=== PATIENT | female | born 1935 | race Caucasian/White ===

== ENCOUNTER 2017-12-12 08:43 | Day surgery (SDC) | payer OTHER ==
--- NOTE | 2017-12-12 09:42 | HP ---
History & Physical Update - History History: No Change - Physical Physical: No Change - Assessment Assessment: No Change - Plan Plan: No Change
[2017-12-12] MEDS ORDERED: LIDOCAINE HCL 2% 100 MG/5 ML DISP.SYRIN ONE (09:51)
[2017-12-12] MEDS ORDERED: ROCURONIUM BROMIDE 50 MG/5 ML VIAL ONE (09:51)
[2017-12-12] MEDS ORDERED: fentaNYL CITRATE 250 MCG/5 ML VIAL ONE (09:51)
[2017-12-12] MEDS ORDERED: MIDAZOLAM HCL 2 MG/2 ML SINGLE DOSE VIAL ONE (09:51)
[2017-12-12] MEDS ORDERED: DEXAMETHASONE SOD PHOSPHATE 4 MG/1 ML VIAL ONE (09:51)
[2017-12-12] MEDS ORDERED: PROPOFOL 20 ML ONE (09:51)
[2017-12-12 10:03] VITALS: BMI 31.5
[2017-12-12] MEDS ORDERED: LIDOCAINE 1%/EPI 1:100000 (20 ML MULTI DOSE VIAL) ONE (10:40)
[2017-12-12] MEDS ORDERED: MICROFIBRILLAR COLLAGEN 1 GM EACH ONE (10:40)
[2017-12-12] MEDS ORDERED: ePHEDrine SULFATE 50 MG/1 ML AMPULE ONE (11:34)
[2017-12-12] MEDS ORDERED: ceFAZolin SODIUM 1 GM VIAL ONE (11:38)
[2017-12-12] MEDS ORDERED: ceFAZolin SODIUM 1 GM VIAL IVPB ONE (11:40)
[2017-12-12] MEDS ORDERED: LIDOCAINE 1%/EPI 1:100000 (20 ML MULTI DOSE VIAL) IJ ONE (11:46)
[2017-12-12] MEDS ORDERED: oxyCODONE HCL 5 MG TABLET PO PRN ×3 (12:41→14:46)
[2017-12-12] MEDS ORDERED: ONDANSETRON 4 MG/2 ML VIAL IVPUSH PRN (12:41)
[2017-12-12] MEDS ORDERED: LACTATED RINGERS SOLUTION 1,000 ML IV SCH (12:45)
[2017-12-12] MEDS ORDERED: MICROFIBRILLAR COLLAGEN 1 GM EACH TP ONE (12:47)
[2017-12-12] MEDS ORDERED: CALCIUM CARBONATE 650 MG TABLET PO ONE ×3 (14:30→17:38)
[2017-12-12] MEDS ORDERED: ACETAMINOPHEN 325 MG TABLET (FP) PO PRN (14:47)
--- NOTE | 2017-12-12 15:30 | OP ---
Operative Note - Note: Operative Date: 12/12/17 Pre-Operative Diagnosis: nontoxic thyroid goiter Operation: Total thyroidectomy Findings: thyroid goiter Post-Operative Diagnosis: Same as Pre-op Surgeon: Jason Long Ems Director: Jasmin Hendrickson Anesthesiologist/SPECIAL EVENTS DIRECTOR: Javy Bradshaw Anesthesia: General Specimens Removed: Thyroid Estimated Blood Loss (mls): 50 Drains & Tubes with Location: sukumar to right neck Fluid Volume Replaced (mls): 700 Operative Report Dictated: Yes
--- NOTE | 2017-12-12 15:31 | SURG ---
Surgery Practice Nurse Note Practice Nurse: Jasmin Hendrickson PA-C Date of Service: 12/12/17 Diagnosis: non-toxic goiter Procedure: Total thyroidectomy I was present for the entirety of the operative procedure. For further detail, please refer to operative report. Visit type - Case Type Case Type: Scheduled Admission - Emergency Emergency Visit: No - New patient This patient is new to me today: Yes Date on this admission: 12/12/17
[2017-12-12] MEDS ORDERED: CALCITRIOL 0.25 MCG CAPSULE (FP) PO ONE ×2 (16:45→17:37)
[2017-12-12] MEDS: ELECTROLYTE-148 SOLN 1,000 ML IV SCH (17:00)
[2017-12-13] MEDS: ELECTROLYTE-148 SOLN 1,000 ML IV SCH (00:11)
[2017-12-13] MEDS ORDERED: LEVOTHYROXINE NA 25 MCG TABLET (FP) ONE ×2 (05:04→06:32)
[2017-12-13] MEDS ORDERED: LEVOTHYROXINE NA 112 MCG TABLET (FP) ONE ×2 (05:04→06:33)
[2017-12-13] MEDS ORDERED: CALCIUM CARBONATE 650 MG TABLET PO SCH ×2 (06:00)
[2017-12-13] MEDS ORDERED: LEVOTHYROXINE NA 125 MCG TABLET (FP) PO SCH ×2 (07:00)
[2017-12-13] MEDS ORDERED: LEVOTHYROXINE 112 MCG, LEVOTHYROXINE 25 MCG PO SCH (07:00)
[2017-12-13] MEDS ORDERED: LEVOTHYROXINE 125 MCG, LEVOTHYROXINE 12.5 MCG PO SCH (07:00)
--- NOTE | 2017-12-13 08:00 | OP ---
DATE OF OPERATION: 12/12/2017 SURGICAL ATTENDING: Aneesh Colin MD [place] REPRESENTATIVE: Jasmin PREOPERATIVE DIAGNOSIS: Thyroid goiter. POSTOPERATIVE DIAGNOSIS: Thyroid goiter. ANESTHESIA: General endotracheal. PROCEDURE: 1. Total thyroidectomy. 2. Parathyroid re-implantation into right sternocleidomastoid muscle. 3. Neck ultrasound. DESCRIPTION OF PROCEDURE: The patient was taken into the operating room, placed in a supine position, endotracheally intubated. Neck ultrasound was performed showing a massive thyroid goiter, left greater than right, with no adenopathy. The patient was then prepped and draped in usual sterile fashion. Local anesthesia was administered, and an 8-cm incision was made in the anterior mid-neck. This was carried down through subcutaneous tissues, then platysma, and subplatysmal flaps were raised superiorly and inferiorly. Flap hooks were placed for exposure. The median raphe was incised, and the strap muscles were elevated bilaterally. The dissection began on the left side where the recurrent laryngeal nerve and superior laryngeal nerve were identified and preserved. Every effort was made to preserve parathyroid tissue. The superior, inferior, and posterior attachments were transected. The isthmus was transected, and in this way, the left thyroid lobe was removed. The lobe was then inspected, and a small piece of parathyroid tissue was identified. This was extracted. A frozen section sent to confirm parathyroid tissue, and it was re-implanted into the right sternocleidomastoid muscle in 2 pockets marked with 4-0 Prolene suture. Dissection then continued on the right side where the recurrent laryngeal nerve, superior laryngeal nerve, and parathyroid tissues were identified and preserved. The superior, posterior, and inferior attachments were transected, and in this way, the right thyroid lobe was removed and lifted off of the trachea. It was inspected, and no parathyroid tissue was found. Hemostasis was achieved with Avitene and electrocautery. The wound was then closed in 3 layers over a Hemovac drain. Sterile dressings were placed. The patient was then awakened, extubated, and taken to Recovery in stable condition. Dr. Colin, the attending surgeon, was present throughout the entire procedure. ANEESH COLIN M.D. [id number]
[2017-12-13 08:52] VITALS: BP 140/67; PULSE 81; TEMP 97.8
--- NOTE | 2017-12-13 09:15 | PN ---
Progress Note (short form) - Note Progress Note: POD1 from total thyroidectomy. Feeling very well. Eating well and speaking well with a clear voice. Drain serosanguinous--minimal. Wound CDI. No numbness or tingling. DC home on calcium, calcitriol and levothyroxine. Calcium level 9.2 today.
[2017-12-13] MEDS ORDERED: CALCITRIOL 0.25 MCG CAPSULE (FP) PO SCH (10:00)
[2017-12-13] MEDS ORDERED: ASPIRIN COATED 81 MG TABLET.EC PO SCH (10:00)
--- NOTE | 2017-12-13 10:13 | PN ---
Progress Note (short form) - Note Progress Note: Anesthesiology Post-op POD#1 s/p total thyroidectomy under GA. Pt. feels well, denies pain, has no problems swallowing. VSS. No apparent anesthesia-related issues.
--- NOTE | 2017-12-17 14:24 | PATH ---
Surgical Pathology Report Patient Name: SHAUNA JORDAN [facility] Rec. #: [id number] /Age/Gender: 1935 (Age: 82) / F Account: [id number] Location: AMBULATORY SURG Taken: 12/12/2017 Received: 12/12/2017 Reported: 12/17/2017 Physicians: Jason Long M.D. Specimen(s) Received A: LEFT INFERIOR PARATHYROID BIOPSY B: LEFT THYROID LOBE C: RIGHT THYROID LOBE Clinical History Thyroid nodule Intraoperative Consult Diagnosis Parathyroid biopsy (frozen section): Scant parathyroid tissue present. Lex Mckeon M.D., 12/12/17 Final Diagnosis A. PARATHYROID, LEFT, INFERIOR, BIOPSY: BENIGN PARATHYROID TISSUE. B. THYROID, LEFT, LOBECTOMY: BENIGN THYROID WITH MULTI NODULAR HYPERPLASIA, CYSTIC AND FOCAL METAPLASTIC CHANGES. C. THYROID, RIGHT, LOBECTOMY: BENIGN THYROID WITH MULTI NODULAR HYPERPLASIA AND FOCAL METAPLASTIC CHANGES. Electronically Signed Allyn Martel M.D. Gross Description A. Received fresh labeled "left inferior parathyroid biopsy," is a less than 0.5 g, 0.2 cm greatest dimension rico red soft tissue fragment. The specimen is submitted in toto for frozen section. The frozen section residue is entirely submitted in one cassette. B. Received in formalin labeled "left thyroid lobe," is a 174 g, 10.0 x 7.3 x 4.5 cm intact thyroid lobe. The outer capsule is red-brown with adhesions. The specimen is inked blue and serially sectioned. Sectioning reveals abundant heterogeneous, focally hemorrhagic colloid nodules, measuring up to 4.5 cm in greatest dimension. No normal remaining thyroid parenchyma is identified. [employer] sections are sequentially submitted in 12 cassettes. C. Received in formalin labeled "right thyroid lobe," is a 72 g, 7.5 x 5.0 x 3.8 cm intact thyroid lobe. The outer capsule is red-brown with adhesions. The specimen is inked blue and serially sectioned. Sectioning reveals abundant heterogeneous, focally hemorrhagic colloid nodules, measuring up to 2.7 cm in greatest dimension. No normal remaining thyroid parenchyma is identified. [employer] sections are sequentially submitted in 10 cassettes. DL/12/12/2017 saudi/12/12/2017
== END 2017-12-13 11:45 | disposition home or self-care (01) ==
LOC: JASU-SURG 08:43 → JASUSAT 08:43 → J8W 20:29 → JASUSAT 12-13 11:45
PROVIDERS: ATTEND Surgery
PROC: 0GBJ0ZZ Excision of Thyroid Gland Isthmus, Open Approach (ICD-10-PCS; 2017-12-12)
PROC: 0GSR0ZZ Reposition Parathyroid Gland, Open Approach (ICD-10-PCS; 2017-12-12)
PROC: 0GTK0ZZ Resection of Thyroid Gland, Open Approach (ICD-10-PCS; principal; 2017-12-12 10:15)
DX: E04.8 Other specified nontoxic goiter (principal)
CPT/HCPCS: 36415; 82310; 88305-TC; 88307-TC; 88331-TC; 94760